=== PATIENT | female | born 1960 | race Asian ===

== ENCOUNTER 2020-08-12 19:49 | Inpatient (IN) | payer MEDICAID ==
[~2020-08-12] VITALS: Ht 160 cm; Wt 63.5 kg
[2020-08-12] MEDS ORDERED: MECLIZINE HCL 25 MG TABLET PO ONE (20:30)
[2020-08-12] MEDS ORDERED: ONDANSETRON ODT 4 MG TAB.RAPDIS SL ONE (20:30)
--- NOTE | 2020-08-12 20:35 | NUR ---
Magaly FORD in room to examine patient.
--- NOTE | 2020-08-12 20:41 | NUR ---
CAT scan personnel arrived to take patient.
--- NOTE | 2020-08-12 20:53 | NUR ---
CAT SCAN PERSONNEL TOOK PT TO CAT SCAN
[2020-08-12 21:38] LABS: BASOPHILS % (AUTO) 0.5 % (0.0-2.0); EOSINOPHILS # (AUTO) 0.1 K/uL (0.0-0.7); EOSINOPHILS % (AUTO) 0.5 % (0.0-7.0); HEMATOCRIT 42.7 % (31.2-41.9); LYMPHOCYTES # (AUTO) 0.9 K/uL (20.0-40.0); LYMPHOCYTES % (AUTO) 8.5 % (20.5-51.5); MEAN CORPUSCULAR HEMOGLOBIN 28.5 uug (24.7-32.8); MEAN CORPUSCULAR HGB CONC 33 g/dL (32.3-35.6); MEAN CORPUSCULAR VOLUME 86.9 fL (75.5-95.3); MONOCYTES # (AUTO) 0.2 K/uL (2.0-10.0); MONOCYTES % (AUTO) 1.8 % (0.0-11.0); NEUTROPHILS # (AUTO) 9.3 K/uL (1.8-8.9); NEUTROPHILS % (AUTO) 88.7 % (38.5-71.5); PLATELET COUNT (AUTO) 341 K/uL (179-408); RED BLOOD CELL COUNT(AUTO) 4.91 MIL/uL (3.63-4.92); WHITE BLOOD COUNT (AUTO) 10.5 K/uL (3.8-11.8)
[2020-08-12 21:41] LABS: CREATININE 0.8 mg/dL (0.6-1.3); POTASSIUM 3.6 mmol/L (3.5-5.1)
[2020-08-12 21:52] LABS: BILIRUBIN,DIRECT 0.1 mg/dL (0.0-0.2); BILIRUBIN,TOTAL 0.3 mg/dL (0.2-1.0); TOTAL PROTEIN, SERUM 7.8 g/dL (6.4-8.2)
--- NOTE | 2020-08-12 22:50 | NUR ---
PATIENT STATES DIZZINESS IS "BETTER" ABLE TO AMBULATE AROUND UNIT WITH STEADY GAIT.
--- NOTE | 2020-08-12 22:55 | NUR ---
PATIENT C/O LEFT SIDE OF HEAD NUMBNESS THAT STARTED AT [address] FORD INTO RE EVAL PATIENT.
--- NOTE | 2020-08-12 22:59 | NUR ---
DR FORD SPOKE WITH DR AYON FOR NEUROLOGY CONSULT.
[2020-08-12] MEDS ORDERED: ASPIRIN 325 MG TABLET PO ONE (23:15)
[2020-08-12] MEDS ORDERED: ASPIRIN 325 MG TABLET ONE (23:23)
--- NOTE | 2020-08-13 00:32 | NUR ---
DR FORD SPEAKING WITH DR GARCIA CASHIER OR [employer] STOCK CLERK FOR [employer].
[2020-08-13] MEDS ORDERED: ACETAMINOPHEN 325 MG TABLET PO PRN (05:45)
[2020-08-13] MEDS ORDERED: ONDANSETRON 4 MG/2 ML VIAL IV PRN (05:45)
[2020-08-13] MEDS ORDERED: MORPHINE SULFATE 2 MG/1 ML DISP.SYRIN IV PRN (05:45)
[2020-08-13 06:24] LABS: BASOPHILS # (AUTO) 0.1 K/uL (0.0-8.0); BASOPHILS % (AUTO) 0.8 % (0.0-2.0); EOSINOPHILS # (AUTO) 0.2 K/uL (0.0-0.7); EOSINOPHILS % (AUTO) 2.1 % (0.0-7.0); HEMATOCRIT 40.8 % (31.2-41.9); HEMOGLOBIN 13.4 g/dL (10.9-14.3); LYMPHOCYTES # (AUTO) 2.1 K/uL (20.0-40.0); LYMPHOCYTES % (AUTO) 27.6 % (20.5-51.5); MEAN CORPUSCULAR HEMOGLOBIN 28.6 uug (24.7-32.8); MEAN CORPUSCULAR HGB CONC 33 g/dL (32.3-35.6); MEAN CORPUSCULAR VOLUME 86.9 fL (75.5-95.3); MONOCYTES # (AUTO) 0.3 K/uL (2.0-10.0); MONOCYTES % (AUTO) 3.7 % (0.0-11.0); NEUTROPHILS # (AUTO) 5.1 K/uL (1.8-8.9); NEUTROPHILS % (AUTO) 65.8 % (38.5-71.5); PLATELET COUNT (AUTO) 337 K/uL (179-408); WHITE BLOOD COUNT (AUTO) 7.8 K/uL (3.8-11.8)
[2020-08-13 06:44] LABS: CREATININE 0.8 mg/dL (0.6-1.3); POTASSIUM 3.3 mmol/L (3.5-5.1)
[2020-08-13 06:48] LABS: BILIRUBIN,TOTAL 0.5 mg/dL (0.2-1.0); MAGNESIUM 2.5 mg/dL (1.8-2.4); PHOSPHOROUS 3.8 mg/dL (2.5-4.9); TOTAL PROTEIN, SERUM 7.3 g/dL (6.4-8.2)
[2020-08-13 06:54] LABS: THYROID STIMULATING HORMONE 0.695 mIU/mL (0.358-3.740)
[2020-08-13] MEDS ORDERED: PANTOPRAZOLE SODIUM 40 MG TABLET.DR PO SCH (07:00)
[2020-08-13] MEDS ORDERED: PANTOPRAZOLE SODIUM 40 MG TABLET.DR PO ONE (07:20)
[2020-08-13] MEDS ORDERED: ASPIRIN 325 MG TABLET ONE (08:07)
--- NOTE | 2020-08-13 08:31 | NUR ---
PT IS RESTING IN BED COMFORTABLY. NO S/S OF ACUTE DISTRESS AT THIS TIME. CONTINUE TO MONITOR THE PT.
[2020-08-13] MEDS ORDERED: ASPIRIN EC 325 MG TABLET.DR PO SCH (09:00)
--- NOTE | 2020-08-13 11:48 | NUR ---
PT DECIDED TO LEAVE HOSPITAL AMA. STACEY DE SANTIAGO EVALUATED THE PT AND EXPLAINED ALL RISKS OF LEAVING HOSPITAL AMA TO THE PT. PT VERBALISED FULL UNDERSTANDING. PT SIGNED AMA FORM AND LEFT [facility] WITH HER FRIEND BY CAR. GAIT WAS STABLE. PT DENIES PAIN, NO SOB, NO N/V, NO DIZZINESS.
== END 2020-08-13 11:55 | disposition left against medical advice (07) | DRG 48 ==
LOC: ER 19:52 → TRANSITION 08-13 02:07
PROVIDERS: ADMIT Nurse Practitioner Acute Care; ATTEND Nurse Practitioner Acute Care
DX: G90.8 Other disorders of autonomic nervous system (principal); G45.9 Transient cerebral ischemic attack, unspecified; E87.6 Hypokalemia; Z20.822 Contact with and (suspected) exposure to COVID-19
CPT/HCPCS: 36415; 70030-TC; 70450; 83605; 83735; 84100; 84443; 85025; 85730; 93005; A4663; G0378; J8597; Q0162

== ENCOUNTER 2020-08-17 15:40 | Emergency (ER) | payer SELFPAY | END 2020-08-17 15:50 | disposition left against medical advice (07) | LOC: ER 15:40 | DX: Z75.3 Unavailability and inaccessibility of health-care facilities (principal) ==